=== PATIENT | female | born 1945 | race American Indian/Alaskan Native ===

== ENCOUNTER 2018-10-02 11:10 | Emergency (ER) | payer MEDICARE ==
[2018-10-02 11:34] VITALS: O2SAT 100
--- NOTE | 2018-10-02 11:59 | C.PDOC ---
Time Seen by Provider: 10/02/18 11:57 Chief Complaint (Nursing): Medical Clearance Past Medical History Vital Signs: Last Vital Signs Temp 98 F 10/02/18 11:17 Pulse 106 H 10/02/18 11:17 Resp 20 10/02/18 11:17 BP 137/67 10/02/18 11:17 Pulse Ox 100 10/02/18 11:17 - Medical History PMH: HTN, Hypercholesterolemia, Hyperthyroidism - Social History Hx Alcohol Use: No Hx Substance Use: No - Immunization History Hx Influenza Vaccination: No Hx Pneumococcal Vaccination: Yes ED Course And Treatment O2 Sat by Pulse Oximetry: 100 Disposition - Disposition
--- NOTE | 2018-10-02 12:00 | C.PDOC ---
History Of Present Illness 73 year old female referred by Dr. Ge for evaluation. Patient has had a bilateral leg wound and dry skin for "a while." Per referral, patient has poorly controlled diabetes mellitus, but compliant with medication.Patient's PMD is Dr. Rutherford. Patient denies fever. REFERRED [facility] FOR EVAL. BL LEG WOUNDS, DRY SKIN "FOR A WHILE". PER REFERRAL, PT POORLY CONTROLLED DM BUT COMPLIANT W MEDS. NO FEVER. EXAM NAD SKIN MULT OLD SUPERFICIAL ULCERATIONS B/L LOWER LEGS W SEVERE DRY SKIN, FLAKING. NO ERYTHEMA, DC, SWELL REMIANDER NEG PMD GARRETT <Danita Miller - Last Filed: 10/02/18 13:33> History Per: Patient History/Exam Limitations: no limitations Onset/Duration Of Symptoms: Hrs Current Symptoms Are (Timing): Still Present <Danita Miller - Last Filed: 10/02/18 13:33> <Juliette Euceda - Last Filed: 10/02/18 15:50> Time Seen by Provider: 10/02/18 11:57 Chief Complaint (Nursing): Medical Clearance Past Medical History Reviewed: Historical Data, Nursing Documentation, Vital Signs Vital Signs: Last Vital Signs Temp 98 F 10/02/18 11:17 Pulse 106 H 10/02/18 11:17 Resp 20 10/02/18 11:17 BP 137/67 10/02/18 11:17 Pulse Ox 100 10/02/18 11:17 - Medical History PMH: HTN, Hypercholesterolemia, Hyperthyroidism Surgical History: No Surg Hx Family History: States: Unknown Family Hx - Social History Hx Alcohol Use: No Hx Substance Use: No - Immunization History Hx Influenza Vaccination: No Hx Pneumococcal Vaccination: Yes <Danita Miller - Last Filed: 10/02/18 13:33> Vital Signs: Last Vital Signs Temp 98.0 F 10/02/18 15:45 Pulse 96 H 10/02/18 15:45 Resp 16 10/02/18 15:45 BP 126/69 10/02/18 15:45 Pulse Ox 100 10/02/18 15:45 <Juliette Euceda - Last Filed: 10/02/18 15:50> Review Of Systems Constitutional: Negative for: Fever, Chills, Weakness Cardiovascular: Negative for: Chest Pain, Palpitations Respiratory: Negative for: Cough, Shortness of Breath Gastrointestinal: Negative for: Nausea, Vomiting, Abdominal Pain Musculoskeletal: Positive for: Leg Pain (bilateral leg wound) Skin: Positive for: Other (Dry) Neurological: Negative for: Weakness, Numbness, Dizziness <Danita Miller - Last Filed: 10/02/18 13:33> Physical Exam - Physical Exam Appears: Well, Non-toxic, No Acute Distress Skin: Dry (severe, flakey), Other (multiple old superficial ulcerations on bilateral lower legs, no erythema, no discharge, no swelling) Head: Atraumatic, Normacephalic Chest: Symmetrical, No Deformity Cardiovascular: Rhythm Regular, No Murmur Respiratory: No Accessory Muscle Use, No Rales, No Rhonchi, No Wheezing Gastrointestinal/Abdominal: Soft, No Tenderness Extremity: Capillary Refill (<2 seconds) Pulses: Left Radial: Normal, Right Radial: Normal Neurological/Psych: Oriented x3, Normal Speech, Normal Cognition <Danita Miller - Last Filed: 10/02/18 13:33> ED Course And Treatment - Laboratory Results Result Diagrams: 10/02/18 12:54 O2 Sat by Pulse Oximetry: 100 (RA) Progress Note: Labs ordered for patient with bloodwork. <PaulDanita - Last Filed: 10/02/18 13:33> - Laboratory Results Result Diagrams: 10/02/18 12:54 10/02/18 12:54 Lab Results: Total Bilirubin 0.6 mg/dL (0.2-1.3) 10/02/18 12:54 AST 31 U/L (14-36) 10/02/18 12:54 ALT 20 U/L (9-52) 10/02/18 12:54 Alkaline Phosphatase 86 U/L (38-126) 10/02/18 12:54 Total Protein 9.0 g/dL (6.3-8.3) H 10/02/18 12:54 Albumin 4.3 g/dL (3.5-5.0) 10/02/18 12:54 Globulin 4.7 gm/dL (2.2-3.9) H 10/02/18 12:54 Albumin/Globulin Ratio 0.9 (1.0-2.1) L 10/02/18 12:54 <Juliette Euceda - Last Filed: 10/02/18 15:50> Progress - Re-Evaluation Re-evaluation Note: 10/02/18 12:14 D/W PODIATRY RESIDENT WILL EVAL IN ER 10/02/18 13:07 CLEARED TO FU PODIATRY OUTPT <Danita Miller - Last Filed: 10/02/18 13:33> Disposition - Disposition Disposition Time: 13:00 <Danita Miller - Last Filed: 10/02/18 13:33> Counseled Patient/Family Regarding: Studies Performed, Diagnosis, Need For Followup - Disposition Disposition Time: 15:50 <Juliette Euceda - Last Filed: 10/02/18 15:50> - Disposition Referrals: Jaye Dawn MD [Staff Provider] - Mo Brown DPM [Staff Provider] - Disposition: HOSPITALIZED Condition: STABLE Additional Instructions: FOLLOW UP WITH YOUR DOCTOR IN 1-2 DAYS, AND WITH PODIATRY WITHIN 1 WEEK RETURN TO ER IF SYMPTOMS WORSEN Instructions: Hyperglycemia, Adult, Dermatitis Forms: Head Held High (Welsh) Print Language: CZECH - Clinical Impression Clinical Impression: Dermatitis, Hyperglycemia - Scribe Statement The provider has reviewed the documentation as recorded by the Scribe (Kaylene Lopez) All medical record entries made by the Scribe were at my direction and personally dictated by me. I have reviewed the chart and agree that the record accurately reflects my personal performance of the history, physical exam, medical decision making, and the department course for this patient. I have also personally directed, reviewed, and agree with the discharge instructions and disposition. <PaulDanita - Last Filed: 10/02/18 13:33> Physician Patient Turnover Patient Signed Over To: Juliette Euceda Handoff Comments: FU LABS, DISPO <Danita Miller - Last Filed: 10/02/18 13:33>
[2018-10-02 12:58] LABS: BASO % 0.5 % (0.0-2.0); EOS % 0.2 % (0.0-4.0); HEMOGLOBIN 10.6 g/dL (11.0-16.0); LYMPH # 1.5 K/uL (1.0-4.3); LYMPH % 22.7 % (20.0-40.0); MEAN CORPUSCULAR HGB CONC 32.5 g/dL (33.0-37.0); MEAN PLATELET VOLUME 7.9 fL (7.2-11.7); MONO # 0.4 K/uL (0.0-0.8); MONO % 6.5 % (0.0-10.0); NEUT # 4.8 K/uL (1.8-7.0); NEUT % 70.1 % (50.0-75.0); RBC 3.67 Mil/uL (3.80-5.20); RED CELL DISTRIBUTION WIDTH 13.5 % (11.5-14.5); WHITE BLOOD COUNT 6.8 K/uL (4.8-10.8)
[2018-10-02 13:46] LABS: ALB/GLOB RATIO 0.9 (1.0-2.1); ALBUMIN 4.3 g/dL (3.5-5.0); CALCIUM 9.4 mg/dl (8.6-10.4)
[2018-10-02] MEDS ORDERED: (Novolin R) Insulin Human Regular 100 units/ml vial IVP ONE (13:51)
[2018-10-02] MEDS ORDERED: Sodium Chloride 0.9% 500 ML IV ONE ×2 (13:52→14:17)
--- NOTE | 2018-10-02 13:59 | CP.PCM.CON ---
History of Present Illness - History of Present Illness History of Present Illness: Podiatry Consult Note: Dr. Brown 73 year old female with PMHx of DM, HTN and hyperthyroidism was seen and evaluated at bedside in ED for bilateral leg wounds. Patient is accompanied by her family. Patient states that she has had the wounds for about few weeks now. Patient states that she went to bed at night and woke up with them on the legs. States that she does not know how she may have gotten them. Patient denies of having any heater or fireplace right by her legs where she sleeps. Patient denies of having any pets in the house. Patient also denies of any topical allergies. Patient denies of performing any prior treatment before coming to the ED. Patient states that her FBG today was 220mg/dL. Patient denies of having any recent F/N/V/C/SOB/CP/headache. Denies of having any other pedal complains at this time. PMHx: DM, HTN, Hyperthyroidism PSHx: Denies Allergies: NKDA SHx: Denies EtOH, smoking or any illicit drug usage Review of Systems - Constitutional Constitutional: As Per HPI Past Patient History - Past Social History Smoking Status: Never Smoked - CARDIAC Hx Hypercholesterolemia: Yes Hx Hypertension: Yes - ENDOCRINE/METABOLIC Hx Hyperthyroidism: Yes - PSYCHIATRIC Hx Substance Use: No - SURGICAL HISTORY Hx Eye Surgery: Yes (Both) - ANESTHESIA Hx Anesthesia: Yes Hx Anesthesia Reactions: No Meds Allergies/Adverse Reactions: Allergies Allergy/AdvReac Type Severity Reaction Status Date / Time No Known Allergies Allergy Verified 10/02/18 11:25 - Medications Medications: Current Medications Sodium Chloride (Sodium Chloride 0.9%) 500 mls @ 1,000 mls/hr IV .Q30M ONE Stop: 10/02/18 14:21 Physical Exam - Constitutional Appears: Well, Non-toxic, No Acute Distress - Extremities Exam Additional comments: Bilateral LE exam VASC: DP/PT pulses are palpable 2/4, Cap refill time: < 3 sec to all digits, Temp gradient: warm to cool from proximal to distal, no pitting or non-pitting edema noted DERM: Diffuse superficial wounds with dry eschar base extending distal to mid thigh to mid leg (R>L), no active drainage from the wound, no erythema, no malodor, no probe to bone, no purulence, no tunneling or tracking, severe xero sis noted, no clinical suspicion of active infection NEURO: Protective sensation grossly diminished (Ipswitch test:0/4 bilaterally) ORTHO: no pain on palpation of the wound, MMT: 5/5 in all 4 direction at the ankle joint - Neurological Exam Neurological exam: Alert, Oriented x3 - Psychiatric Exam Psychiatric exam: Normal Affect, Normal Mood Results - Vital Signs Recent Vital Signs: Last Vital Signs Temp 98 F 10/02/18 11:17 Pulse 106 H 10/02/18 11:17 Resp 20 10/02/18 11:17 BP 137/67 10/02/18 11:17 Pulse Ox 100 10/02/18 13:33 - Labs Result Diagrams: 10/02/18 12:54 10/02/18 12:54 Labs: Laboratory Results - last 24 hr 10/02/18 10/02/18 12:54 12:54 WBC 6.8 RBC 3.67 L Hgb 10.6 L Hct 32.7 L MCV 89.0 MCH 29.0 MCHC 32.5 L RDW 13.5 Plt Count 474 H MPV 7.9 Neut % (Auto) 70.1 Lymph % (Auto) 22.7 Day % (Auto) 6.5 Eos % (Auto) 0.2 Baso % (Auto) 0.5 Neut # (Auto) 4.8 Lymph # (Auto) 1.5 Day # (Auto) 0.4 Eos # (Auto) 0.0 Baso # (Auto) 0.0 Sodium 128 L Potassium 5.2 Chloride 91 L Carbon Dioxide 28 Anion Gap 14 BUN 22 H Creatinine 1.1 Est GFR ( Amer) 59 Est GFR (Non-Af Amer) 49 Random Glucose 479 H* Calcium 9.4 Total Bilirubin 0.6 AST 31 ALT 20 Alkaline Phosphatase 86 Total Protein 9.0 H Albumin 4.3 Globulin 4.7 H Albumin/Globulin Ratio 0.9 L Assessment & Plan - Assessment and Plan (Free Text) Assessment: 72 year old female with PMHx of DM, HTN, and hyperthroidism was evaluated for non-infected superficial wounds to bilateral LE Plan: Patient seen and evaluated Discussed plan with attending Dr. Stephanie PEDRO, no leukocytosis; elevated RBG Wound appear very stable and superficial with no signs of active infection Educated patient to moisturize her feet daily and to cover her feet in sheets while in bed Educated patient to check her feet and LE daily Educated patient to follow up with Dr. Brown as an outpatient for f/u care Educated to return to ED if systemic signs are experienced Demonstrated verbal understanding of the plan Thank you for the podiatry consult and allowing to take part in patient care - Date & Time Date: 10/02/18 Time: 14:08
[2018-10-02] MEDS ORDERED: (Novolin R) Insulin Human Regular 100 units/ml vial ONE ×2 (14:16→14:19)
[2018-10-02 15:46] VITALS: BP 126/69; PULSE 96; RESP 16; TEMP 98
== END 2018-10-02 16:25 | disposition home or self-care (01) ==
LOC: C.ER 11:10
DX: E11.65 Type 2 diabetes mellitus with hyperglycemia (principal); L30.9 Dermatitis, unspecified; E78.00 Pure hypercholesterolemia, unspecified; I10 Essential (primary) hypertension; E05.90 Thyrotoxicosis, unspecified without thyrotoxic crisis or storm
CPT/HCPCS: 80053; 82948; 85025; 96374; 99284; J7040